=== PATIENT | female | born 1960 | race Caucasian/White ===

== ENCOUNTER → 2021-01-10 | Outpatient (CLI) | payer OTHER ==
[2021-01-10 17:30] LABS: HEMOGLOBIN 11.8 gm/dl (12.3-15.3); RED BLOOD COUNT 4.14 M/UL (4.00-5.10); WHITE BLOOD COUNT 6.5 K/UL (4.5-11.0)
[2021-01-10 17:49] LABS: BUN/CREATININE RATIO 15 (0-10)
[2021-01-12 07:11] LABS: VITAMIN D, 25-HYDROXY 52.8 ng/mL (30.0-100.0)
[2021-01-12 08:15] LABS: THYROXINE (T4) 6.9 ug/dL (4.5-12.0)
== END ==
LOC: LAB 17:02
PROVIDERS: Nurse Practitioner
DX: Z13.220 Encounter for screening for lipoid disorders (principal); E55.9 Vitamin D deficiency, unspecified; R53.83 Other fatigue; D51.9 Vitamin B12 deficiency anemia, unspecified
CPT/HCPCS: 36415; 80053; 80061; 81001; 82607; 84436; 84443; 84480; 85025

== ENCOUNTER → 2021-02-03 | Outpatient (CLI) | payer OTHER | LOC: LAB 17:38 | DX: E11.9 Type 2 diabetes mellitus without complications (principal) | CPT/HCPCS: 83036 ==